=== PATIENT | male | born 1990 | race Caucasian/White ===

== ENCOUNTER 2016-09-01 07:00 | Emergency (ER) | payer SELFPAY ==
--- NOTE | 2016-09-01 08:25 | ER Document Report ---
ED Eye Complaint - General Mode of Arrival: Ambulatory Information source: Patient TRAVEL OUTSIDE OF THE [place] IN LAST 30 DAYS: No - HPI Patient complains to provider of: Visual irregularity to the Left eye Onset: Other - 2 days ago Associated symptoms: Other - see above - General Chief Complaint: Headache Stated Complaint: ANXIETY Notes: 26 year old male with history of anxiety presents to the ED complaining of black "floaters" to the left eye that started 2 days ago. Patient reports that while driving 2 days ago he began to see intermittent black dots and described his vision as "wavy" which lasted for 30 minutes. Patient developed a headache secondary to these floaters and reports that he had a headache all day yesterday , but reports no such headache currently. Patient saw Dr. Wilde, opthamologist, yesterday and had a normal eye exam. Patient was told that he may be developing occular headaches. Patient also explains that his anxiety seems to be exacerbating his vision problem and had episodes of sweaty palms, heart racing, and shortness of breath due to his anxiety, but denies any of these symptoms now. (FRANCISCA DEL ROSARIO) - Related Data Allergies/Adverse Reactions: No Known Allergies Allergy (Verified 09/01/16 07:16) Home Medications: Current Home Medications No Home Medications 09/01/16 [History] Past Medical History - General Information source: Patient - Social History Smoking Status: Never Smoker Chew tobacco use (# tins/day): No Frequency of alcohol use: None Drug Abuse: None Family History: Reviewed & Not Pertinent Patient has suicidal ideation: No Patient has homicidal ideation: No Neurological Medical History: Reports: Hx Migraine Renal/ Medical History: Denies: Hx Peritoneal Dialysis Psychiatric Medical History: Reports: Hx Anxiety Surgical Hx: Negative - Immunizations Hx Diphtheria, Pertussis, Tetanus Vaccination: Yes Review of Systems - Review of Systems Constitutional: No symptoms reported EENT: See HPI, Other - intermittent black floaters to the left eye Cardiovascular: No symptoms reported Respiratory: No symptoms reported Gastrointestinal: No symptoms reported Genitourinary: No symptoms reported Male Genitourinary: No symptoms reported Musculoskeletal: No symptoms reported Skin: No symptoms reported Hematologic/Lymphatic: No symptoms reported Neurological/Psychological: See HPI, Anxiety, Headaches - past 2 days Physical Exam - General General appearance: Alert In distress: None - HEENT Head: Normocephalic, Atraumatic, Other - No scalp or temporal artery tenderness to palpation. Eyes: Normal Extraocular movements intact: Yes Pupils: PERRL Anterior chamber: Normal Fundascopic: Normal - Respiratory Respiratory status: No respiratory distress - Cardiovascular Rhythm: Regular - Abdominal Inspection: Normal - Back Back: Normal - Extremities General upper extremity: Normal inspection, Normal ROM General lower extremity: Normal inspection, Normal ROM - Neurological Neuro grossly intact: Yes - Psychological Associated symptoms: Normal affect, Normal mood - Skin Skin Temperature: Warm Skin Moisture: Dry Skin Color: Normal Discharge - Discharge Clinical Impression: Anxiety Floaters in visual field Qualifiers: Laterality: left Qualified Code(s): H43.392 - Other vitreous opacities, left eye Additional Instructions: Anxiety: The physician feels that some of your health problems are being caused by anxiety. Anxiety affects your health in many ways. Anxiety alone can cause palpitations, sweats, chest pains, abdominal pains, shortness of breath, and headaches. It contributes to ulcer disease, high blood pressure, irritable bowel syndrome, and has been shown to cause flare-ups of many other diseases. Anxiety is not a simple disorder to treat. If the anxiety is due to recent life stresses, you may simply need time to "work through" the changes. If the anxiety is due to an underlying unhappiness with yourself or due to psychiatric disturbance, professional help will be needed. Your physician can refer you for further help if needed. Anti-anxiety medication is occasionally given if the stress is acute or if you are having trouble sleeping. Chronic or frequent use of these medications is not a good idea because the body becomes reliant on it, preventing you from dealing with life's normal stresses. TRY TO REST AND RELAX FOR A FEW DAYS. FOLLOW UP WITH DR. WILDE IF THE VISUAL SYMPTOMS DO NOT IMPROVE. FOLLOW UP WITH [facility] OR [facility] IF THE ANXIETY DOES NOT IMPROVE. RETURN TO THE EMERGENCY ROOM IF ANY NEW OR WORSENING SYMPTOMS. Forms: Return to Work Referrals: JOSE WILDE MD [ACTIVE STAFF] - Follow up as needed [facility] [Outside] - Follow up as needed [facility] [Provider Group] - Follow up as needed Scribe Attestation: 09/01/16 08:29 I personally performed the services described in the documentation, reviewed and edited the documentation which was dictated to the scribe in my presence, and it accurately records my words and actions. (VIC NOBLE) Scribe Documentation - Scribe Written by Kasey:: Kasey Lama, 09/01/2016, 903 acting as scribe for :: [employer]iva
== END 2016-09-01 08:35 | disposition home or self-care (01) ==
LOC: ER 07:00
DX: F41.9 Anxiety disorder, unspecified (principal); H43.392 Other vitreous opacities, left eye; R51 Headache; Z86.69 Personal history of other diseases of the nervous system and sense organs
CPT/HCPCS: 99283